=== PATIENT | female | born 1950 | race Caucasian/White ===

== ENCOUNTER 2023-10-16 07:49 | Inpatient (IN) | payer MEDICARE, OTHER ==
[~2023-10-16] VITALS: Ht 165.1 cm; Wt 69.4 kg
[~2023-10-16 07:49] MED LIST: CARI350T27 PO; ESCI10TA PO; GABA300C PO; HYDR25TA4 PO; IBUP-1957 PO; OLME40TA18 PO; POTA20TA83 PO; ROSU40TA PO
[2023-10-16] MEDS: IV NS 0.9% 1,000 ML BAG IV ONE (08:26)
[2023-10-16 08:45] LABS: BASOPHILS % (AUTO) 0.5 % (0.0-2.0); EOSINOPHILS # (AUTO) 0.1 K/uL (0.0-0.7); EOSINOPHILS % (AUTO) 3.2 % (0.0-6.0); HEMATOCRIT 34 % (33-45); HEMOGLOBIN 11.1 g/dL (11.5-14.8); LYMPHOCYTES # (AUTO) 1.5 K/uL (0.8-4.8); LYMPHOCYTES % (AUTO) 40.6 % (20.0-44.0); MEAN CORPUSCULAR HEMOGLOBIN 30 PG (26.0-33.0); MEAN CORPUSCULAR HGB CONC 33 g/dl (31.0-36.0); MEAN CORPUSCULAR VOLUME 91 fL (82-100); MONOCYTES # (AUTO) 0.3 K/uL (0.1-1.30); MONOCYTES % (AUTO) 9.5 % (2.0-12.0); NEUTROPHILS # (AUTO) 1.7 K/uL (1.8-8.9); NEUTROPHILS % (AUTO) 46.2 % (43.0-81.0); PLATELET COUNT (AUTO) 136 K/uL (150-450); RED CELL DISTRIBUTION WIDTH 14.5 % (11.5-15.0); WHITE BLOOD COUNT (AUTO) 3.6 K/uL (4.3-11.0)
[2023-10-16 08:46] LABS: ALANINE AMINOTRANSFERASE 33 U/L (12-78); ALBUMIN 3.2 g/dL (3.4-5.0); ALCOHOL, BLOOD 197 mg/dL (0-10); ALKALINE PHOSPHATASE 64 U/L (46-116); ASPARTATE AMINOTRANSFERASE 29 U/L (15-37); BILIRUBIN,DIRECT 0.1 mg/dL (0.0-0.2); BILIRUBIN,TOTAL 0.3 mg/dL (0.2-1.0); CALCIUM, SERUM 9.2 mg/dL (8.5-10.1); CARBON DIOXIDE 29 mmol/L (21-32); CHLORIDE 104 mmol/L (98-107); GLUCOSE 99 mg/dL (74-106); SODIUM SERUM 143 mmol/L (136-145); TOTAL PROTEIN, SERUM 6.2 g/dL (6.4-8.2); UREA NITROGEN, BLOOD 25 mg/dL (7-18)
[2023-10-16 08:50] LABS: POTASSIUM 2.7 mmol/L (3.5-5.1)
[2023-10-16 09:00] LABS: INR 0.96 (0.91-1.10); PARTIAL THROMBOPLASTIN TIME 22.3 SEC (24.3-34.3); PROTHROMBIN TIME 10.2 SECS (9.2-11.1)
[2023-10-16] MEDS ORDERED: CT SWABBABLE VALVE TRANS SET 1 EA INFUS.SET MC ONE (09:24)
[2023-10-16] MEDS ORDERED: IOHEXOL-300 100 ML VIAL IV ONE (09:24)
[2023-10-16] MEDS ORDERED: IV NS 0.9% 250 ML IV ONE (09:24)
[2023-10-16 10:30] VITALS: BP 138/65; TEMP 98; O2SAT 94
[2023-10-16] MEDS ORDERED: Magnesium 1GM/D5W 100ML PREMIX 100 ML IV ONE (10:33)
[2023-10-16] MEDS: Magnesium 1GM/D5W 100ML PREMIX 100 ML IV SCH (10:40)
[2023-10-16] MEDS ORDERED: POTASSIUM CL. PREMIX PERIPHER. 150 ML ONE (11:05)
[2023-10-16] MEDS: POTASSIUM CL. PREMIX PERIPHER. 50 ML IV SCH (11:30)
== END 2023-10-16 14:07 | disposition left against medical advice (07) | DRG 894 ==
LOC: ER 07:51 → TELE1 13:02
PROVIDERS: ADMIT Nurse Practitioner Acute Care; ATTEND Nurse Practitioner Acute Care
DX: F10.929 Alcohol use, unspecified with intoxication, unspecified (principal); Y90.6 Blood alcohol level of 120-199 mg/100 ml; Y92.410 Unspecified street and highway as the place of occurrence of the external cause; V89.2XXA Person injured in unspecified motor-vehicle accident, traffic, initial encounter; V49.49XA Driver injured in collision with other motor vehicles in traffic accident, initial encounter; Z53.29 Procedure and treatment not carried out because of patient's decision for other reasons; M47.812 Spondylosis without myelopathy or radiculopathy, cervical region; Z79.899 Other long term (current) drug therapy; I10 Essential (primary) hypertension; G89.29 Other chronic pain; Z88.8 Allergy status to other drugs, medicaments and biological substances; E78.5 Hyperlipidemia, unspecified; E87.6 Hypokalemia; G62.9 Polyneuropathy, unspecified; F32.A Depression, unspecified; S60.222A Contusion of left hand, initial encounter
CPT/HCPCS: 36415; 70450-TC; 71260-TC; 72125-TC; 73130-TC; 80048-TC; 80076-TC; 85025-TC; 85730-TC; A4223; G0378; G0480; J3475; J3480; J7030; J7050; Q9967